=== PATIENT | male | born 1975 | race Caucasian/White ===

== ENCOUNTER → 2018-03-23 | Outpatient (CLI) | payer BC ==
[~2018-03-23] MED LIST: BENICAR HCT 12.1 TA1 PO; ESCITALOPRAM; LORTAB 5/500 501 TAB PO; MOTRIN; MVI; NAPROSYN250 MG PO; VENLAFAXINE75 MG PO; VERAPAMIL; WELLBUTRIN XL150 M1 PO; ZITHROMAX Z PA250 MG PO
== END ==
LOC: COL.RAD 07:30
DX: M47.812 Spondylosis without myelopathy or radiculopathy, cervical region (principal)

== ENCOUNTER → 2018-06-06 | Outpatient (CLI) | payer BC | LOC: MHCPAIN 10:20 | DX: G89.29 Other chronic pain (principal); M54.12 Radiculopathy, cervical region; M47.812 Spondylosis without myelopathy or radiculopathy, cervical region | CPT/HCPCS: G0463 ==

== ENCOUNTER 2019-04-08 19:44 | Emergency (ER) | payer OTHER ==
[~2019-04-08] VITALS: Ht 180.3 cm; Wt 115.0 kg
[2019-04-08 19:48] VITALS: BP 156/103; TEMP 97.7
[2019-04-08] MEDS ORDERED: CYMBALTA 60MG60 MG PO (19:56)
[2019-04-08] MEDS ORDERED: CRESTOR 10MG10 MG PO (19:56)
[2019-04-08] MEDS ORDERED: LISINOPRIL-HCTZ 20-1 (19:57)
[2019-04-08] MEDS ORDERED: ZYLOPRIM 100MG100 MG PO (19:57)
[2019-04-08 20:35] VITALS: PULSE 81
== END 2019-04-08 20:35 | disposition home or self-care (01) ==
LOC: COL.ER 19:44
DX: S20.212A Contusion of left front wall of thorax, initial encounter (principal); F32.9 Major depressive disorder, single episode, unspecified; F41.9 Anxiety disorder, unspecified; E78.5 Hyperlipidemia, unspecified; I10 Essential (primary) hypertension; M19.90 Unspecified osteoarthritis, unspecified site; W19.XXXA Unspecified fall, initial encounter; Y92.59 Other trade areas as the place of occurrence of the external cause
CPT/HCPCS: A9284

== ENCOUNTER 2020-02-10 11:43 | Emergency (ER) | payer BC ==
[~2020-02-10] VITALS: Ht 180.3 cm; Wt 118.2 kg
[~2020-02-10 11:43] MED LIST changes: +BACTRIM DS 8001 TAB PO; +CRESTOR 10MG10 MG PO; +CYMBALTA 60MG60 MG PO; +LISINOPRIL-HCTZ 20-1; +ZYLOPRIM 100MG100 MG PO
[2020-02-10 12:01] VITALS: BP 152/104; TEMP 97.9
[2020-02-10 14:25] VITALS: PULSE 78
== END 2020-02-10 14:27 | disposition home or self-care (01) ==
LOC: COL.ER 11:43
DX: S61.210A Laceration without foreign body of right index finger without damage to nail, initial encounter (principal); Z98.890 Other specified postprocedural states

== ENCOUNTER 2021-11-20 17:47 | Emergency (ER) | payer BC ==
[~2021-11-20] VITALS: Ht 180.3 cm; Wt 127.3 kg
[2021-11-20 17:53] VITALS: TEMP 98
[2021-11-20 18:30] LABS: BASO # 0.1 K/mm3 (0.0-0.2); EOS # 0.2 K/mm3 (0.0-0.7); EOS % 1.9 % (0.0-4.0); GRAN % 71.6 % (42.2-75.2); HEMATOCRIT 38.9 % (42.0-52.0); HEMOGLOBIN 13.5 g/dl (13.5-18.0); LYMPH # 1.4 K/mm3 (1.2-3.4); LYMPH % 17.1 % (20.0-51.0); MEAN CELL VOLUME 84 fl (80.0-100.0); MEAN CORPUSCULAR HEMOGLOBIN 29 pg (27-31); MEAN CORPUSCULAR HGB CONC 35 g/dl (33.0-37.0); MEAN PLATELET VOLUME 9.2 fl (7.4-10.4); MONO # 0.7 K/mm3 (0.1-0.6); MONO % 8.2 % (1.7-9.3); PLATELET COUNT 175 K/mm3 (130-400); RED BLOOD COUNT 4.63 M/mm3 (4.20-5.60); REDCELL DISTRIBUTION WIDTH-CV 13.5 % (11.5-14.5)
[2021-11-20 18:31] LABS: COLLECTION METHOD CLEAN CATCH
[2021-11-20 18:38] LABS: URINE APPEARANCE Clear (CLEAR/HAZY); URINE COLOR Yellow (YELLOW); URINE GLUCOSE Negative (NEGATIVE); URINE KETONE Negative (NEGATIVE); URINE PROTEIN(semi-quant) Negative (NEGATIVE)
[2021-11-20 18:39] LABS: URINE BLOOD TRACE-INTACT (NEGATIVE); URINE NITRATE Negative (NEGATIVE); URINE UROBILINOGEN 0.2 E.U/dL (0.2-1.0)
[2021-11-20] MEDS ORDERED: VERELAN240 MG PO (18:39)
[2021-11-20] MEDS ORDERED: MOBIC15 MG PO (18:39)
[2021-11-20] MEDS ORDERED: NORVASC 10MG10 MG PO (18:40)
[2021-11-20] MEDS ORDERED: COREG 3.123.125 MG/T PO (18:40)
[2021-11-20] MEDS ORDERED: ZYLOPRIM 100MG100 MG PO (18:41)
[2021-11-20] MEDS ORDERED: CYMBALTA 60MG60 MG PO (18:41)
[2021-11-20] MEDS ORDERED: CRESTOR20 MG PO (18:41)
[2021-11-20 18:42] LABS: MUCOUS Present (NOT PRESENT); SQUAMOUS EPITHELIAL None Seen /hpf (0-10); URINE BACTERIA None Seen /hpf (NONE SEEN); URINE RBC 0-2 /hpf (0-2)
[2021-11-20] MEDS ORDERED: PRILOSEC 20MG20 MG PO (18:42)
[2021-11-20] MEDS ORDERED: ZESTORETIC 12.51 TA1 PO (18:42)
[2021-11-20] MEDS ORDERED: OMEGA-3 1000 MG1 CAP PO (18:43)
[2021-11-20] MEDS ORDERED: MULTI VITAMINS1 TAB PO (18:43)
[2021-11-20] MEDS ORDERED: VITAMIN D 400400 IU PO (18:44)
[2021-11-20 18:49] LABS: ALBUMIN 3.9 gm/dL (3.5-5.0); BILIRUBIN,TOTAL 0.9 mg/dL (0.2-1.2); CALCIUM 9.3 mg/dL (8.4-10.2); CREATININE, serum 0.96 mg/dL (0.72-1.25); POTASSIUM 3.1 mmol/L (3.5-4.5)
[2021-11-20] MEDS ORDERED: DOXYCYCLINE 10100 MG PO (19:54)
[2021-11-20 20:10] VITALS: BP 165/119; PULSE 75
== END 2021-11-20 20:10 | disposition home or self-care (01) ==
LOC: COL.ER 17:47
PROVIDERS: Family Medicine
DX: L03.116 Cellulitis of left lower limb (principal)
CPT/HCPCS: J0690; J7030